=== PATIENT | male | born 1960 | race Caucasian/White ===

== ENCOUNTER 2022-10-08 11:31 | Emergency (ER) | payer BC ==
[~2022-10-08] VITALS: Ht 177.8 cm; Wt 78.0 kg
--- NOTE | 2022-10-08 11:42 | NUR ---
PATIENT CAME TO EMERGENCY DEPARTMENT WITH COMPLAINTS OF WEAKNESS/DIZZINESS,SYNCOPE AND EPIGASTRIC PAIN .ALERT AND ORIENTED*4.ON ROOM AIR.ATTACHED TO ORDER TRACER AND PULSE OXYMETER.CHANGED TO HOSPITAL GOWN.AWAITING MD FOR EVALUATION.
--- NOTE | 2022-10-08 12:00 | NUR ---
IV INSERTED ON LT AC NO 20 G ,BLOOD SAMPLE COLLECTED AND NOTIFIED LAB FOR COLLECTION.
--- NOTE | 2022-10-08 12:09 | NUR ---
XRAY AT BED SIDE
--- NOTE | 2022-10-08 12:11 | NUR ---
FAMILY AT BED SIDE
[2022-10-08 12:13] LABS: BASOPHILS # (AUTO) 0.1 K/uL (0.0-0.2); BASOPHILS % (AUTO) 0.9 % (0.0-2.0); HEMATOCRIT 44 % (39-51); HEMOGLOBIN 14.6 g/dL (13.5-17.5); LYMPHOCYTES # (AUTO) 1.2 K/uL (0.8-4.8); LYMPHOCYTES % (AUTO) 19.4 % (20.0-44.0); MEAN CORPUSCULAR HGB CONC 34 g/dl (31.0-36.0); MEAN CORPUSCULAR VOLUME 88 fL (80-96); MONOCYTES # (AUTO) 0.3 K/uL (0.1-1.30); MONOCYTES % (AUTO) 5.5 % (2.0-12.0); NEUTROPHILS # (AUTO) 4.5 K/uL (1.8-8.9); NEUTROPHILS % (AUTO) 73.2 % (43.0-81.0); PLATELET COUNT (AUTO) 160 K/uL (150-450); RED BLOOD CELL COUNT(AUTO) 4.95 MIL/uL (4.5-6.0); WHITE BLOOD COUNT (AUTO) 6.2 K/uL (4.3-11.0)
[2022-10-08 12:26] LABS: CALCIUM, SERUM 9.1 mg/dL (8.5-10.1); CARBON DIOXIDE 28 mmol/L (21-32); CHLORIDE 106 mmol/L (98-107); CREATININE 1.2 mg/dL (0.6-1.3); GLUCOSE 96 mg/dL (74-106); POTASSIUM 4.3 mmol/L (3.5-5.1); SODIUM SERUM 140 mmol/L (136-145); UREA NITROGEN, BLOOD 13 mg/dL (7-18)
[2022-10-08 12:33] LABS: ALANINE AMINOTRANSFERASE 31 U/L (12-78); ALBUMIN 3.7 g/dL (3.4-5.0); ALKALINE PHOSPHATASE 58 U/L (46-116); ASPARTATE AMINOTRANSFERASE 32 U/L (15-37); BILIRUBIN,DIRECT 0.2 mg/dL (0.0-0.2); BILIRUBIN,TOTAL 0.9 mg/dL (0.2-1.0); TOTAL PROTEIN, SERUM 6.5 g/dL (6.4-8.2)
--- NOTE | 2022-10-08 12:53 | NUR ---
DR FLYNN AT BED SIDE FOR PATIENT EVALUATION.
--- NOTE | 2022-10-08 12:53 | NUR ---
DR FLYNN AT BED SIDE FOR PATIENT EVALUATION.
--- NOTE | 2022-10-08 13:06 | NUR ---
Patient discharged to home in stable condition. Written and verbal after care instructions given. Patient verbalizes understanding of instruction.
--- NOTE | 2022-10-08 13:06 | NUR ---
IV removed. Catheter intact and site benign. Pressure and 4x4 applied to site. No bleeding noted.
[2022-10-08 13:08] VITALS: BP 97/64; TEMP 98.2; O2SAT 98
== END 2022-10-08 13:08 | disposition home or self-care (01) ==
LOC: ER 12:15
DX: R55 Syncope and collapse (principal)
CPT/HCPCS: 36415; 71045-TC; 80048-TC; 80076-TC; 84484-TC; 85025-TC